=== PATIENT | male | born 1940 | race Caucasian/White ===

== ENCOUNTER 2017-05-05 11:50 | Day surgery (SDC) | payer MEDICARE, BC ==
[2017-05-05] VITALS (9 sets, daily range): BP systolic 122–178; BP diastolic 65–89
[~2017-05-05] VITALS: Ht 182.9 cm; Wt 69.9 kg
[~2017-05-05 11:50] MED LIST: ABIR500T PO; CHOL10002 PO; DONE10TA6 PO; FOLI1TAB16 PO; MEMA28CA PO; MULT-963 PO; OMEP20TA5 PO; PARO40TA4 PO; PRED5TAB PO; VERA240C2 PO; cefazolin/dext.iso 2gm/50ml 50 ML IV ONE; famotidine 20mg tablet PO ONE; ringers solution, lacted 1,000 ML IV SCH
[2017-05-05 12:57] LABS: BASOPHILS % (AUTO) 0.4 % (0-1); EOSINOPHILS # (AUTO) 0.2 X10'3 (0-0.9); EOSINOPHILS % (AUTO) 2.2 % (0-6); HEMATOCRIT 40.3 % (42.0-52.0); HEMOGLOBIN 13.8 g/dl (14.0-17.9); LYMPHOCYTES # (AUTO) 1.8 X10'3 (1.1-4.8); LYMPHOCYTES % (AUTO) 18.8 % (21-51); MEAN CORPUSCULAR HEMOGLOBIN 33.7 PG (27.0-31.0); MEAN CORPUSCULAR HGB CONC 34.2 % (33.0-36.5); MEAN CORPUSCULAR VOLUME 98.6 FL (78-98); MONOCYTES # (AUTO) 0.6 X10'3 (0-0.9); MONOCYTES % (AUTO) 6.2 % (2-12); NEUTROPHILS # (AUTO) 6.8 X10'3 (1.8-7.7); NEUTROPHILS % (AUTO) 72.4 % (42-75); PLATELET COUNT 330 X10'3 (140-440); RED BLOOD COUNT 4.09 X10'6 (4.70-6.10); RED CELL DISTRIBUTION WIDTH 12.9 % (11.5-14.5); WHITE BLOOD COUNT 9.4 X10'3 (4.5-11.0)
[2017-05-05 13:06] LABS: CLARITY,URINE SLIGHTLY CLOUDY (Clear); GLUCOSE, URINE NEGATIVE (Neg); KETONES,URINE NEGATIVE (Neg); LEUKOCYTE ESTERASE ,URINE NEGATIVE (Neg); NITRITES, URINE POSITIVE (Neg); OCCULT BLOOD,URINE NEGATIVE (Neg); PROTEIN,URINE NEGATIVE (Neg); UROBILINOGEN,URINE 0.2 E.U/dL (0.2-1.0)
[2017-05-05 13:17] LABS: UA COLLECTION TYPE NON-SPECIFIED
[2017-05-05 13:18] LABS: COLOR,URINE DARK YELLOW (Yellow)
[2017-05-05 13:19] LABS: ALANINE AMINOTRANSFERASE 35 U/L (12-78); ALBUMIN 3.2 G/DL (3.4-5.0); ALBUMIN/GLOBULIN RATIO 0.9 (1.1-1.5); ALKALINE PHOSPHATASE 78 IU/L (46-116); ANION GAP 6 (8-16); ASPARTATE AMINO TRANSFERASE 23 U/L (10-37); BILIRUBIN,TOTAL 0.4 MG/DL (0.1-1.0); BLOOD UREA NITROGEN 19 MG/DL (7-18); BUN/CREATININE RATIO 21.6 (5.4-32.0); CHLORIDE 107 MMOL/L (99-107); CREATININE 0.88 MG/DL (0.60-1.10); GLUCOSE 101 MG/DL (70-104); POTASSIUM 3.9 MMOL/L (3.5-5.1); SODIUM 143 MMOL/L (135-145); TOTAL CARBON DIOXIDE 30.4 MMOL/L (24-32); TOTAL PROTEIN 6.9 G/DL (6.4-8.2); eGFR 84 ML/MIN
[2017-05-05 13:19] LABS: BACTERIA,URINE 4+ /HPF (Neg); MUCUS STRANDS MODERATE /LPF (Neg); RBC,URINE NONE SEEN /HPF (0-2); SQUAMOUS EPITHELIAL CELL,UR FEW /LPF (FEW); WBC CLUMPS,URINE FEW /HPF (NEGATIVE)
[2017-05-05] MEDS ORDERED: BUPIVAcaine/PF 2.5 mg/ml (0.25%) 30ml vial ONE (14:03)
[2017-05-05] MEDS ORDERED: sevoflurane 250ml liquid IH ONE (14:23)
[2017-05-05] MEDS ORDERED: ePHEDrine 50MG/ML INJ. ONE (14:23)
[2017-05-05] MEDS ORDERED: fentaNYL/PF 50MCG/1 ML 2ML syringe ONE (14:24)
[2017-05-05] MEDS ORDERED: propofol inj 20 ML IV ONE (14:25)
[2017-05-05] MEDS ORDERED: LIDOcaine 2% (20mg/ml) 5ml vial ONE (14:25)
[2017-05-05] MEDS ORDERED: dexamethasone sod phosphate 4mg/ml inj. ONE (14:41)
[2017-05-05] MEDS ORDERED: ondansetron/PF 4mg/2ml inj ONE (15:11)
[2017-05-05] MEDS ORDERED: ringers solution, lacted 1,000 ML IV SCH (15:22)
[2017-05-05] MEDS ORDERED: ondansetron/PF 4mg/2ml inj IV PRN (15:25)
== END 2017-05-05 16:15 | disposition home or self-care (01) ==
LOC: PAS 11:50
PROVIDERS: ATTEND Surgery
DX: M79.9 Soft tissue disorder, unspecified (principal); I10 Essential (primary) hypertension; K21.9 Gastro-esophageal reflux disease without esophagitis; Z98.890 Other specified postprocedural states; Z79.899 Other long term (current) drug therapy; Z85.46 Personal history of malignant neoplasm of prostate
CPT/HCPCS: 21554; 36415; 71046; 80053; 81001; 85025; 93005; A6449; J0690; J1100; J2001; J2405; J2704; J3010; J3490; J7120; 88307; A7000